=== PATIENT | female | born 1970 | race Asian ===

== ENCOUNTER → 2020-10-24 | Outpatient (CLI) | payer SELFPAY ==
[~2020-10-24] MED LIST: ASPI81CH; ASPI81CH PO; CIPR500 PO; CODACE30 PO; HYDACE5 PO; KETO10 PO; MULVITA; MULVITMINE PO; Medi-Meclizine25 MG PO; ONDA4ODT MM; OXYACE5T PO; PENVK500 PO; PHENA200 PO; Percocet 5-3251 EACH PO; RXOXYACE PO; SULTRIDS PO
[2020-10-25 09:06] LABS: Stool Occult Bld Immuno 1 Negative (NEGATIVE)
== END | disposition home or self-care (01) ==
LOC: LAB SHORT 10:06 → LAB EV 10:06
PROVIDERS: Nurse Practitioner Family
DX: Z00.00 Encounter for general adult medical examination without abnormal findings (principal); Z12.11 Encounter for screening for malignant neoplasm of colon; T78.1XXS Other adverse food reactions, not elsewhere classified, sequela
CPT/HCPCS: G0328